=== PATIENT | female | born 1990 | race Caucasian/White ===

== ENCOUNTER 2016-08-20 19:44 | Outpatient (CLI) | payer MEDICAID | END 2016-08-20 22:15 | disposition home or self-care (01) | LOC: BC 19:44 → 2LDRP 19:44 → BC 22:15 | DX: O47.03 False labor before 37 completed weeks of gestation, third trimester (principal); Z3A.30 30 weeks gestation of pregnancy ==

== ENCOUNTER 2016-09-11 17:50 | Outpatient (CLI) | payer MEDICAID | END 2016-09-11 20:57 | disposition home or self-care (01) | LOC: BC 17:50 → 2LDRP 17:50 → BC 20:57 | DX: O47.03 False labor before 37 completed weeks of gestation, third trimester (principal); Z3A.34 34 weeks gestation of pregnancy ==